=== PATIENT | male | born 1975 ===

== ENCOUNTER 2017-03-31 06:54 | Day surgery (SDC) | payer SELFPAY ==
--- NOTE | 2017-03-30 23:17 | Pre-op HX & Phy Repo 2 SIG ---
DATE OF ADMISSION: 03/31/2017 Code #67993 PREOPERATIVE DIAGNOSIS: Nonclearing vitreous hemorrhage, left eye. BRIEF NOTE: This is the first [place] admission for the patient. He is a very nice 41-year-old gentleman with severe proliferative diabetic retinopathy. The patient was noted to have severe diabetes and retinal changes on his initial examination in June of 2016. After a hiatus of 7 months, he presented with vitreous hemorrhage in the left and has undergone laser treatment in both eyes as well as Avastin injections. His hemorrhage on the left is failed to clear and he is admitted for vitrectomy on that side. PAST MEDICAL HISTORY: Remarkable for diabetes for at least 6 years and possibly longer. He also has been diagnosed with hypertension. CURRENT MEDICATIONS: Include aspirin and metformin. PHYSICAL EXAMINATION: Best vision at the time of admission was 20/25 in the right eye, hand motions in the left with pressures of 12 and 13. The anterior segments were clear. Fundus examination showed optic disc in the neovascularization extensive peripheral laser and a subhyaloid hemorrhage. The left fundus showed a very dense vitreous hemorrhage and mixed with old laser scars. General physical examination be done by . . ASSESSMENT: Vitreous hemorrhage, left eye associated with severe proliferative diabetic retinopathy. PLAN: The plan is to perform a pars plana vitrectomy with membrane peeling as needed, endolaser, and Avastin injection on the left eye. The risks and benefits of surgery gone over the patient with potential infection, hemorrhage, worsening of the cataract, glaucoma, and remote possibility of loss of the eye. The risk of anesthesia was also discussed. The patient understands and consents to the surgery, which will be performed on tomorrow morning. Neymar Childers M.D. DR: Ab JOB#: [id number] CC:
[2017-03-31] VITALS (10 sets, daily range): BP systolic 133–155; BP diastolic 83–96
[~2017-03-31] VITALS: Ht 185.4 cm; Wt 83.9 kg
--- NOTE | 2017-03-31 06:12 | Pre-Procedure Note/Attestation ---
Pre-Procedure Note/Attestation Complete Prior to Procedure Planned Procedure: left Procedure Narrative: PPV, membrane peel, endolaser, possible Avastin injection L eye Indications for Procedure Pre-Operative Diagnosis: Non-clearing diabetic vitreous hemorrhage L eye Attestation I attest that I discussed the nature of the procedure; its benefits; risks and complications; and alternatives (and the risks and benefits of such alternatives ), prior to the procedure, with the patient (or the patient's legal help desk representative). I attest that, if there was a reasonable possibility of needing a blood transfusion, the patient (or the patient's legal help desk representative) was given the [facility] standardized written summary, pursuant to the Mayito Mukund Blood Safety Act ([place] Health and Safety Code # 1645, as amended). I attest that I re-evaluated the patient just prior to the surgery and that there has been no change in the patient's H&P, except as documented below: PALOMO DURAN March 31, 2017 06:12
[~2017-03-31 06:54] MED LIST: BSS 15ml BTL ONE; BSS 500ml btl ONE; Bupivacaine 0.75% 30ml vial INJ ONE; Cyclopentolate 1% Opth Sol ONE; Dexamethasone 4mg/ml vial ONE; EPINEPHrine 1mg/1ml Amp ONE; Flurbiprofen 0.03% Opth Sol 2.5ml ONE; Gatifloxacin Opth Solution 0.5% ONE; Kenalog-10 5ml Inj ONE; Kenalog-40 1ml Vial ONE; Lidocaine 2% MPF 5ml Vial INJ ONE; Maxitrol Opth Oint 3.5gm ONE; Phenylephrine 2.5% Op Soln ONE; Povidone-Iodine 5% opth solution ONE; Pred Forte 1% Opth Susp 1ml LEFT EYE ONE; Pred Forte 1% Opth Susp 1ml ONE; Sodium Hyaluronate 10 mg/ml 0.85ml ONE; Tetracaine 0.5% Opth Soln ONE; Triamcinolone 40mg/ml PF Vial ONE
[2017-03-31] MEDS ORDERED: LR 1000ml 1,000 ML IV SCH (08:05)
[2017-03-31] MEDS: Cyclopentolate 1% Opth Sol LEFT EYE SCH ×3 (08:07→08:31)
[2017-03-31] MEDS: Phenylephrine 2.5% Op Soln LEFT EYE SCH ×3 (08:08→08:31)
[2017-03-31] MEDS: Flurbiprofen 0.03% Opth Sol 2.5ml LEFT EYE SCH ×3 (08:08→08:31)
[2017-03-31] MEDS: Gatifloxacin Opth Solution 0.5% LEFT EYE SCH ×3 (08:08→08:31)
[2017-03-31] MEDS ORDERED: LISINOPRIL10 MG ORAL (08:18)
[2017-03-31] MEDS ORDERED: ASPIR 8181 MG ORAL (08:18)
[2017-03-31] MEDS ORDERED: METFORMIN HCL500 M1 ORAL (08:18)
[2017-03-31 08:21] LABS: BASOPHILS % (AUTO) 0.8 % (0.0-2.0); EOSINOPHILS % (AUTO) 0.3 % (0.0-3.0); LYMPHOCYTES % (AUTO) 35.7 % (20.0-45.0); MEAN CORPUSCULAR HEMOGLOBIN 29.7 PG (27.0-31.0); MEAN CORPUSCULAR HGB CONC 36.2 G/DL (32.0-36.0); MEAN CORPUSCULAR VOLUME 82 FL (80-99); MEAN PLATELET VOLUME 6.3 FL (6.5-10.1); MONOCYTES % (AUTO) 7.3 % (1.0-10.0); NEUTROPHILS % (AUTO) 55.9 % (45.0-75.0); PLATELET COUNT 120 K/UL (150-450); RED BLOOD COUNT 4.53 M/UL (4.70-6.10); RED CELL DISTRIBUTION WIDTH 11.2 % (11.6-14.8); WHITE BLOOD COUNT 4.4 K/UL (4.8-10.8)
[2017-03-31 08:34] LABS: ANION GAP 13 (5-15); CALCIUM 9.4 mg/dL (8.6-10.2); CARBON DIOXIDE 27 mEQ/L (20-30); CHLORIDE 99 mEQ/L (98-107); CREATININE 0.8 mg/dL (0.7-1.2); GLOMERULAR FILTRATION RATE > 60 mL/min (>60); HEMOLYSIS 5; SODIUM 139 mEQ/L (135-145)
[2017-03-31] MEDS ORDERED: NS Irrig 1000ml ONE (09:00)
[2017-03-31] MEDS ORDERED: Sterile Water Irrig 1000ml IRRIG ONE (09:00)
[2017-03-31] MEDS ORDERED: Propofol 10mg/ml 20ml IV ONE (09:00)
[2017-03-31] MEDS ORDERED: LR 1000ml ONE (09:00)
[2017-03-31] MEDS ORDERED: Lidocaine 1% MPF 10mg/ml 5ml ONE (09:00)
[2017-03-31] MEDS ORDERED: LR 1000ml 1,000 ML IVLG SCH (09:26)
--- NOTE | 2017-03-31 09:26 | Anethesia Preoperative Eval ---
Anesthesia Pre-op PMH/ROS General Date of Evaluation: March 31, 2017 Anesthesiologist: Obie ASA Score: ASA 2 Mallampati Score Class I : Soft palate, uvula, fauces, pillars visible Class II: Soft palate, uvula, fauces visible Class III: Soft palate, base of uvula visible Class IV: Only hard plate visible Mallampati Classification: Class II Surgeon: Liseth Diagnosis: Left eye vitreous hemorrhage Surgical Procedure: Left eye vitrectomy Anesthesia History: none Family History: no anesthesia problems Allergies: Coded Allergies: No Known Allergies (Unverified , 03/30/17) Medications: see eMAR Past Medical History Cardiovascular: Denies: CAD, HTN, [place], arrhythmia, other, valve dz Pulmonary: Denies: COPD, ERNA, asthma, other Gastrointestinal/Genitourinary: Denies: CRI, ESRD, GERD, other Neurologic/Psychiatric: Denies: CVA, TIA, dementia, depression/anxiety, other Endocrine: Reports: DM, Denies: hypothyroidism, other, steroids HEENT: Denies: [place] (L), [place] (R), cataract (L), cataract (R), glaucoma, other Hematology/Immune: Denies: DVT, anemia, bleeding disorder, other Musculoskeletal/Integumentary: Denies: DDD, DJD, OA, RA, edema, other PSxH Narrative: Right knee arthroscopy Anesthesia Pre-op Phys. Exam Physician Exam Last Vital Signs Date Time Temp Pulse Resp B/P Pulse Ox O2 Delivery O2 Flow Rate FiO2 03/31/17 08:26 97.7 74 20 150/88 99 Room Air Constitutional: NAD Cardiovascular: RRR Respiratory: CTA Airway Exam Mallampati Score: Class II MO: full ROM: full Teeth: intact Anesthesia Pre-op A/P Labs Hematology Test 03/31/17 08:10 White Blood Count 4.4 K/UL (4.8-10.8) L Red Blood Count 4.53 M/UL (4.70-6.10) L Hemoglobin 13.4 G/DL (14.2-18.0) L Hematocrit 37.1 % (42.0-52.0) L Mean Corpuscular Volume 82 FL (80-99) Mean Corpuscular Hemoglobin 29.7 PG (27.0-31.0) Mean Corpuscular Hemoglobin Concent 36.2 G/DL (32.0-36.0) H Red Cell Distribution Width 11.2 % (11.6-14.8) L Platelet Count 120 K/UL (150-450) L Mean Platelet Volume 6.3 FL (6.5-10.1) L Neutrophils (%) (Auto) 55.9 % (45.0-75.0) Lymphocytes (%) (Auto) 35.7 % (20.0-45.0) Monocytes (%) (Auto) 7.3 % (1.0-10.0) Eosinophils (%) (Auto) 0.3 % (0.0-3.0) Basophils (%) (Auto) 0.8 % (0.0-2.0) Chemistry Test 03/31/17 08:10 Sodium Level 139 mEQ/L (135-145) Potassium Level 4.0 mEQ/L (3.4-4.9) Chloride Level 99 mEQ/L (98-107) Carbon Dioxide Level 27 mEQ/L (20-30) Anion Gap 13 (5-15) Blood Urea Nitrogen 19 mg/dL (7-23) Creatinine 0.8 mg/dL (0.7-1.2) Estimat Glomerular Filtration Rate > 60 mL/min (>60) Glucose Level 200 mg/dL (74-106) H Calcium Level 9.4 mg/dL (8.6-10.2) Studies Pre-op Studies: EKG - sr Risk Assessment & Plan Assessment: ASA II Plan: MAC Status Change Before Surgery: No Pre-Antibiotics Drug: N/A TRENT GOODSON M.D. March 31, 2017 09:26
[2017-03-31] MEDS ORDERED: DiphenhydrAMINE 50mg/ml Inj IVP PRN (09:30)
--- NOTE | 2017-03-31 10:27 | Brief Operative Note ---
Immediate Post Operative Note Operative Note Chief Complaint: Cloudy vision OS Pre-op Diagnosis: Non-clearing diabetic vitreous hemorrhage L eye Procedure: PPV, membrane peel, [id number] Left eye Post-op Diagnosis: same as pre-op Surgeon: joy Anesthesiologist: sergio Anesthesia: MAC Specimen: none Complications: none Condition: stable Estimated Blood Loss: none Drains: none Implant(s) used?: No PALOMO DURAN March 31, 2017 10:27
--- NOTE | 2017-03-31 10:30 | Immediate Post-Op Evaluation ---
Immediate Post-Op Evalulation Immediate Post-Op Evalulation Procedure: Left eye vitrectomy Date of Evaluation: March 31, 2017 Time of Evaluation: 10:25 IV Fluids: 800 Blood Products: 0 Estimated Blood Loss: 0 Urinary Output: 0 Blood Pressure Systolic: 155 Blood Pressure Diastolic: 96 Pulse Rate: 73 Respiratory Rate: 16 O2 Sat by Pulse Oximetry: 99 Temperature (Fahrenheit): 97.2 Pain Score (1-10): 0 Nausea: No Vomiting: No Complications 0 Patient Status: awake, reacts, patent, none Hydration Status: adequate Drug: N/A TRENT GOODSON M.D. March 31, 2017 10:30
--- NOTE | 2017-03-31 14:29 | 48 Hour Post Anesthesia Eval ---
Post Anesthesia Evaluation Procedure: Left eye vitrectomy Date of Evaluation: March 31, 2017 Time of Evaluation: 12:00 Blood Pressure Systolic: 137 0: 83 Pulse Rate: 75 Respiratory Rate: 20 Temperature (Fahrenheit): 97.4 O2 Sat by Pulse Oximetry: 98 Airway: patent Nausea: No Vomiting: No Pain Intensity: 0 Hydration Status: adequate Cardiopulmonary Status: at baseline Mental Status/LOC: patient returned to baseline Post-Anesthesia Complications: 0 Follow-up care needed: ready to discharge TRENT GOODSON M.D. March 31, 2017 14:29
--- NOTE | 2017-03-31 17:16 | Operative Note - Dictated ---
DATE OF OPERATION: 03/31/2017 PREOPERATIVE DIAGNOSIS: Nonclearing vitreous hemorrhage, left eye. POSTOPERATIVE DIAGNOSIS: Nonclearing vitreous hemorrhage, left eye. PROCEDURES: 1. Pars plana vitrectomy. 2. Membrane dissection. 3. Endolaser, left eye. SURGEON: Neymar Childers M.D. SIGNAL WORKER: None. ANESTHESIA: Local sedation. ANESTHESIOLOGIST: Breanna Angel M.D. JUSTIFICATION FOR SURGERY: This 41-year-old gentleman with a long history of diabetes developed recurrent vitreous hemorrhages despite extensive laser and Avastin injections as an outpatient. He was admitted for vitrectomy on the left eye. BRIEF NOTE: The patient was brought to the operating room and placed on the OR table in the supine position. After a time-out was performed and agreed upon by the staff, initial monitoring secured by Dr. Angel. Retrobulbar and Van Lint blocks given in the standard way. When the blocks taken effect, he was prepped and draped in normal manner. A lid speculum was inserted into the left eye. Using a 23-gauge trocar system, cannulas were placed in all except the inferonasal quadrant. Infusion secured inferotemporally. Vitrectomy was begun posterior to the crystalline lens taking care to avoid contact. A central core vitrectomy was done followed by peripheral vitrectomy leaving a small vitreous skirt. The posterior hyaloid was seen to be tightly attached to the optic nerve and surrounding tissue. Gentle suction was applied nasally in an effort to clear a potential space between hyaloid and retina. Blood was then suctioned from this potential space, and the vitrector was used to dissect the posterior hyaloid away. Sites of traction along the supranasal arcade and temporally were dissected flush. No tears were encountered. Vitrectomy was continued peripherally until a moderate vitreous skirt was left. No evidence of retinal tears or detachments were seen here. The endolaser was brought to the eye and a power of 0.3 abarca and duration 0.2 seconds, a total of 1537 lesions were applied in a broad band in the peripheral retina and surrounding areas of truncated traction. The instruments were removed from the eye and the wounds massaged and noted to be self-sealing. The infusion was also removed in this way. Subconjunctival Decadron and gentamicin were then injected, and Maxitrol and atropine ointments instilled. The eye was patched and shielded, and the patient was taken to recovery in excellent condition. There were no complications. Nyemar Childers M.D. DR: MC JOB#: [id number] CC:
== END 2017-03-31 12:05 | disposition home or self-care (01) ==
LOC: SUR 06:54
DX: H43.12 Vitreous hemorrhage, left eye (principal); E11.3592 Type 2 diabetes mellitus with proliferative diabetic retinopathy without macular edema, left eye; Z79.84 Long term (current) use of oral hypoglycemic drugs; I10 Essential (primary) hypertension; Z79.82 Long term (current) use of aspirin
CPT/HCPCS: 36415; 67042; 80048; 82962; 85025; J0171; J1100; J2704; J3470; J3490; J7120; 94003; 94150; J3300